=== PATIENT | female | born 1945 | race Caucasian/White ===

== ENCOUNTER → 2018-10-02 | Outpatient (CLI) | payer MEDICARE, OTHER ==
--- NOTE | 2018-10-10 11:15 | HOLTMON ---
[facility] Test Date: 2018-10-02 Pat Name: AUGUSTA BAY Department: Room: - Gender: Female [employer] Sales Rep: Halle Crespo/WENDY BUTCHER : 1945 Requested By: Francisco Anguiano Order Number: [id number] Reading MD: Merlin Duggan Interpretive Statements Patient was monitored for 24:00 hours starting on 10/02/18. 23 hours and 39 minutes were usable for analysis. Baseline mechanism was SR with normal AV conduction and narrow QRS complex. Minimum HR was 51 bpm, average HR 72 bpm and maximum HR 134 bpm. There were no pauses and no episodes of atrial fibrillation. There were rare isolated PVC's. There were frequent PAC's (total 2730) including 420 runs of atrial tachycatdia (maximum 9 beats, fastest 135 bpm). Patient reported single episode of shortness ofbreath corresponding to sinus rhythm. Electronically Signed on 10-10-2018 11:15:32 EDT by Merlin Duggan
== END ==
LOC: M EKG 10:50
DX: R00.0 Tachycardia, unspecified (principal)

== ENCOUNTER → 2021-06-26 | Outpatient (CLI) | payer MEDICARE, OTHER ==
[~2021-06-26] MED LIST: ATOR1TAB21; ECOT81TA5 PO; ELIQ5TAB; LANTINJ4; METF-838; METO1TAB87 PO; METR-265; NOVOINJ3; NOXI1TAB PO; OMEP-173
== END ==
LOC: M RAD 10:41
PROVIDERS: ATTEND Internal Medicine Medical Oncology
DX: M84.88 Other disorders of continuity of bone, other site (principal)

== ENCOUNTER 2022-10-13 16:43 | Inpatient (IN) | payer MEDICARE, BC ==
[~2022-10-13] VITALS: Ht 167.6 cm; Wt 57.0 kg
[~2022-10-13 16:43] MED LIST changes: -ATOR1TAB21; +ATOR1TAB21 PO; -ELIQ5TAB; +ELIQ5TAB PO; -METF-838; +METF-838 PO; -NOVOINJ3; +NOVOINJ3 SQ
[2022-10-13 20:27] VITALS: BP 137/63; TEMP 98.7; O2SAT 93
[2022-10-13 21:32] LABS: HEMATOCRIT 40.3 % (36.0-47.0); MEAN CORPUSCULAR HGB CONC 32.3 g/dl (32.0-36.5); MEAN CORPUSCULAR VOLUME 86.7 fl (80.0-96.0); RED BLOOD COUNT 4.65 10^6/uL (4.00-5.40); WHITE BLOOD COUNT 24.9 10^3/uL (4.0-10.0)
[2022-10-13 21:44] LABS: PLATELET COUNT, AUTOMATED 79 10^3/uL (150-450)
[2022-10-13 21:59] LABS: BLOOD UREA NITROGEN 22 MG/DL (9-23); CALCIUM LEVEL 10.8 MG/DL (8.3-10.6); CARBON DIOXIDE LEVEL 26 MMOL/L (20-31); CHLORIDE LEVEL 106 MMOL/L (98-107); CREATININE FOR GFR 0.49 MG/DL (0.55-1.30); GLOMERULAR FILTRATION RATE > 60.0 (>39); GLUCOSE, FASTING 241 MG/DL (74-106); POTASSIUM SERUM 3.7 MMOL/L (3.5-5.1); SODIUM LEVEL 138 MMOL/L (136-145)
[2022-10-13] MEDS: ACETAMINOPHEN TAB 650MG DOSE (2X325MG) PO PRN (23:27)
[2022-10-13 23:45] LABS: APPEARANCE, URINE CLOUDY (CLEAR); BACTERIA, URINE AUTO 3+ (NEGATIVE); BILIRUBIN, URINE AUTO NEGATIVE (NEGATIVE); BLOOD, URINE BLOOD 3+ (NEGATIVE); COLOR, URINE AMBER (YELLOW); GLUCOSE, URINE (UA) AUTO 3+ mg/dL (NEGATIVE); KETONE, URINE AUTO 1+ mg/dL (NEGATIVE); LEUKOCYTE ESTERASE, URINE AUTO 3+ (NEGATIVE); NITRITE, URINE AUTO POSITIVE (NEGATIVE); PROTEIN, URINE AUTO 2+ mg/dL (NEGATIVE); RBC, URINE AUTO TNTC /HPF (0-3); SPECIFIC GRAVITY URINE AUTO 1.027 (1.002-1.035); SQUAMOUS EPITHELIAL CELL UR AU 1 /HPF (0-6); UROBILINOGEN, URINE AUTO 0.2 mg/dL (0.0-2.0); WBC, URINE AUTO TNTC /HPF (0-3)
[2022-10-13] MEDS ORDERED: NS 1,000 ML IV SCH (23:55)
[2022-10-14] VITALS (8 sets, daily range): BP systolic 125–144; BP diastolic 56–66; TEMP 97.3–98.1; O2SAT 94–100
[2022-10-14] MEDS: cefTRIAXone SOD 1 GM in D5W MINI-BAG PLUS 50 ML IV SCH ×2 (00:03→23:28)
[2022-10-14 06:53] LABS: HEMATOCRIT 40.3 % (36.0-47.0); MEAN CORPUSCULAR HEMOGLOBIN 28.1 pg (27.0-33.0); MEAN CORPUSCULAR HGB CONC 32.3 g/dl (32.0-36.5); RED BLOOD COUNT 4.63 10^6/uL (4.00-5.40); WHITE BLOOD COUNT 21.3 10^3/uL (4.0-10.0)
[2022-10-14 07:03] LABS: PLATELET COUNT, AUTOMATED 80 10^3/uL (150-450)
[2022-10-14 07:22] LABS: BLOOD UREA NITROGEN 22 MG/DL (9-23); CALCIUM LEVEL 9.8 MG/DL (8.3-10.6); CARBON DIOXIDE LEVEL 24 MMOL/L (20-31); CHLORIDE LEVEL 106 MMOL/L (98-107); CREATININE FOR GFR 0.48 MG/DL (0.55-1.30); GLOMERULAR FILTRATION RATE > 60.0 (>39); GLUCOSE, FASTING 259 MG/DL (74-106); POTASSIUM SERUM 3.8 MMOL/L (3.5-5.1); SODIUM LEVEL 138 MMOL/L (136-145)
[2022-10-14] MEDS: HEPARIN SOD (PORCINE) 5000UNITS/ML 1ML VIAL/SYRINGE SC SCH ×5 (07:43→21:13)
[2022-10-14] MEDS ORDERED: DEXTROSE 50% 50ML SYRINGE IV PRN (07:50)
[2022-10-14] MEDS ORDERED: GLUCOSE 4GM CHEW TABLET PO PRN (07:50)
[2022-10-14] MEDS ORDERED: GLUCAGON INJ 1MG VIAL SC PRN (07:50)
[2022-10-14] MEDS ORDERED: MORPHINE 2 MG/ML 1ML VIAL IV PRN (07:50)
[2022-10-14] MEDS ORDERED: METO1TAB32 PO (10:32)
[2022-10-14] MEDS ORDERED: VITA100093 PO (10:32)
[2022-10-14] MEDS ORDERED: ATOR80TA59 PO (10:34)
[2022-10-14] MEDS ORDERED: LISI10TA22 PO (10:41)
[2022-10-14] MEDS ORDERED: AMLO1TAB25 PO (10:41)
[2022-10-14] MEDS ORDERED: ESCI5SOL3 PO (10:41)
[2022-10-14] MEDS ORDERED: METR0.7534 TOP (10:44)
[2022-10-14] MEDS ORDERED: TRAM50TA2 PO (10:44)
[2022-10-14] MEDS ORDERED: ATOR40TA75 PO (10:47)
[2022-10-14] MEDS ORDERED: HOME MED LIST COMPLETE! XX SCH (11:05)
[2022-10-14] MEDS ORDERED: SUGAMMADEX SODIUM 500 MG/5 ML VIAL (BRIDION) As Ordered ONE (13:08)
[2022-10-14] MEDS ORDERED: propofoL 200 MG/20 ML VIAL As Ordered ONE (13:08)
[2022-10-14] MEDS ORDERED: fentaNYL 100 MCG/2 ML INJECTION As Ordered ONE ×2 (13:08→14:26)
[2022-10-14] MEDS ORDERED: ONDANSETRON 4MG 2ML VIAL As Ordered ONE (13:08)
[2022-10-14] MEDS ORDERED: LIDOCAINE 2% 100MG/5ML SDV (FOR ANES.) As Ordered ONE (13:08)
[2022-10-14] MEDS ORDERED: ACETAMINOPHEN 1000MG 100ML IV BAG As Ordered ONE (13:08)
[2022-10-14] MEDS ORDERED: ROCURONIUM BROMIDE 50MG/5ML VIAL As Ordered ONE (13:08)
[2022-10-14] MEDS ORDERED: ceFAZolin 2 GM/D5W 50 ML IV BAG As Ordered ONE (13:10)
[2022-10-14] MEDS ORDERED: ceFAZolin 1GM VIAL As Ordered ONE (13:12)
[2022-10-14] MEDS ORDERED: ESMOLOL INJ 100MG/10ML VIAL As Ordered ONE (13:56)
[2022-10-14] MEDS ORDERED: LABETALOL 100MG/20ML VIAL As Ordered ONE (14:14)
[2022-10-14] MEDS ORDERED: INSULIN LISPRO (NovoLOG) PER UNIT As Ordered ONE ×3 (14:31→14:46)
[2022-10-14] MEDS ORDERED: PHENYLephrine 500MCG 5ML (100MCG/ML) SYRINGE As Ordered ONE (14:59)
[2022-10-14] MEDS ORDERED: KETOROLAC 60MG 2ML VIAL As Ordered ONE (16:14)
[2022-10-14] MEDS ORDERED: METOCLOPRAMIDE INJ 10MG/2ML VIAL IV PRN (16:15)
[2022-10-14] MEDS: METOPROLOL SUCC *XL* 25MG TAB (TopROL *XL*) PO SCH (16:15)
[2022-10-14] MEDS: OMEPRAZOLE 20MG CAP PO SCH (16:15)
[2022-10-14] MEDS: ATORVASTATIN 20 MG TAB PO SCH (16:15)
[2022-10-14] MEDS ORDERED: MEPERIDINE 25 MG/ML 1ML VIAL IV PRN (16:15)
[2022-10-14] MEDS: VITAMIN D 1,000 INTERNATIONAL UNITS TABLET PO SCH (16:15)
[2022-10-14] MEDS ORDERED: ONDANSETRON 4MG 2ML VIAL IV PRN (16:15)
[2022-10-14] MEDS ORDERED: NALBUPHINE HCL 10 MG/ML 1ML AMP IV PRN (16:15)
[2022-10-14] MEDS: ESCITALOPRAM OXALATE 5MG TABLET (LEXAPRO) PO SCH (16:15)
[2022-10-14] MEDS ORDERED: fentaNYL 100 MCG/2 ML INJECTION IV PRN (16:15)
[2022-10-14] MEDS ORDERED: LR 1,000 ML IV SCH (16:15)
[2022-10-14] MEDS ORDERED: INSULIN LISPRO (NovoLOG) PER UNIT SC PRN (16:15)
[2022-10-14] MEDS: ASPIRIN 81MG ENTERIC TABLET PO SCH (16:15)
[2022-10-14] MEDS ORDERED: oxyCODONE 5MG TAB PO PRN (16:15)
[2022-10-14] MEDS ORDERED: diphenhydrAMINE 50MG/ML VIAL IV PRN (16:15)
[2022-10-14] MEDS: INSULIN LISPRO (NovoLOG) PER UNIT SC SCH (21:00)
[2022-10-14] MEDS: ceFAZolin SOD 2 GM in IV 1 EA IV SCH (21:12)
[2022-10-14] MEDS ORDERED: VANCOMYCIN HCL 1,000 MG, VIAL MATE ADAPTER 1 EACH in D5W 250 ML IV SCH (21:25)
[2022-10-14] MEDS: KETOROLAC 30 MG/ML 1ML VIAL IV PRN (21:31)
[2022-10-14] MEDS ORDERED: VANCOMYCIN HCL 1,000 MG, VIAL MATE ADAPTER 1 EACH in D5W 250 ML IV ONE (21:35)
[2022-10-15 02:00] VITALS: BP 122/57; TEMP 97.5; O2SAT 98
[2022-10-15] MEDS: VANCOMYCIN HCL 750 MG, VIAL MATE ADAPTER 1 EACH in D5W 250 ML IV SCH ×2 (05:02→17:45)
[2022-10-15] MEDS: HEPARIN SOD (PORCINE) 5000UNITS/ML 1ML VIAL/SYRINGE SC SCH (05:02)
[2022-10-15] MEDS: ACETAMINOPHEN TAB 650MG DOSE (2X325MG) PO PRN (05:33)
[2022-10-15 05:54] LABS: BLOOD UREA NITROGEN 32 MG/DL (9-23); CALCIUM LEVEL 9.2 MG/DL (8.3-10.6); CARBON DIOXIDE LEVEL 26 MMOL/L (20-31); CHLORIDE LEVEL 107 MMOL/L (98-107); CREATININE FOR GFR 0.53 MG/DL (0.55-1.30); GLOMERULAR FILTRATION RATE > 60.0 (>39); GLUCOSE, FASTING 299 MG/DL (74-106); MAGNESIUM LEVEL 1.9 MG/DL (1.8-2.4); PHOSPHORUS LEVEL 2.7 MG/DL (2.4-5.1); POTASSIUM SERUM 4.1 MMOL/L (3.5-5.1); SODIUM LEVEL 139 MMOL/L (136-145)
[2022-10-15 06:00] VITALS: BP 97/53; TEMP 98.2; O2SAT 95
[2022-10-15 06:15] LABS: BASO # 0.1 10^3/uL (0.0-0.2); BASO % 0.3 % (0.0-1.0); HEMATOCRIT 33.2 % (36.0-47.0); LYMPH # 1.1 10^3/uL (1.5-5.0); LYMPH % 5.3 % (24.0-44.0); MEAN CORPUSCULAR HEMOGLOBIN 27.6 pg (27.0-33.0); MEAN CORPUSCULAR HGB CONC 31.3 g/dl (32.0-36.5); MEAN CORPUSCULAR VOLUME 88.1 fl (80.0-96.0); MONO % 17.1 % (2.0-8.0); NEUTROPHILS # 14.8 10^3/uL (1.5-8.5); NEUTROPHILS % 73.1 % (36.0-66.0); RED BLOOD COUNT 3.77 10^6/uL (4.00-5.40); WHITE BLOOD COUNT 20.3 10^3/uL (4.0-10.0)
[2022-10-15] MEDS: ceFAZolin SOD 2 GM in IV 1 EA IV SCH (06:19)
[2022-10-15 06:53] LABS: HEMOGLOBIN 10.4 g/dl (12.0-15.5); MONO # 3.5 10^3/uL (0.0-0.8); PLATELET COUNT, AUTOMATED 88 10^3/uL (150-450)
[2022-10-15] MEDS: ESCITALOPRAM OXALATE 5MG TABLET (LEXAPRO) PO SCH (08:09)
[2022-10-15] MEDS: INSULIN LISPRO (NovoLOG) PER UNIT SC SCH ×4 (08:09→20:18)
[2022-10-15] MEDS: ASPIRIN 81MG ENTERIC TABLET PO SCH (08:10)
[2022-10-15] MEDS: VITAMIN D 1,000 INTERNATIONAL UNITS TABLET PO SCH (08:10)
[2022-10-15] MEDS: OMEPRAZOLE 20MG CAP PO SCH (08:10)
[2022-10-15] MEDS: ATORVASTATIN 20 MG TAB PO SCH (08:10)
[2022-10-15] MEDS: METOPROLOL SUCC *XL* 25MG TAB (TopROL *XL*) PO SCH (08:10)
[2022-10-15] MEDS: KETOROLAC 30 MG/ML 1ML VIAL IV PRN (11:56)
[2022-10-15 14:01] VITALS: BP 121/48; TEMP 98.1; O2SAT 95
[2022-10-15 19:58] VITALS: BP 115/53; TEMP 98.2; O2SAT 97
[2022-10-15] MEDS: APIXABAN 5 MG TAB (ELIQUIS) PO SCH (20:17)
[2022-10-15] MEDS: LEVEMIR (INSULIN DETEMIR) 1 UNITS/0.01ML SC SCH (20:18)
[2022-10-15] MEDS: cefTRIAXone SOD 1 GM in D5W MINI-BAG PLUS 50 ML IV SCH (22:45)
[2022-10-16] MEDS: VANCOMYCIN HCL 750 MG, VIAL MATE ADAPTER 1 EACH in D5W 250 ML IV SCH (04:56)
[2022-10-16 06:10] VITALS: BP 155/62; TEMP 97.9; O2SAT 94
[2022-10-16 06:18] LABS: BASO # 0.1 10^3/uL (0.0-0.2); BASO % 0.4 % (0.0-1.0); EOS % 0.1 % (0.0-3.0); HEMOGLOBIN 9.6 g/dl (12.0-15.5); LYMPH # 1.6 10^3/uL (1.5-5.0); LYMPH % 8.9 % (24.0-44.0); MEAN CORPUSCULAR HEMOGLOBIN 28.2 pg (27.0-33.0); MEAN CORPUSCULAR HGB CONC 33.1 g/dl (32.0-36.5); MEAN CORPUSCULAR VOLUME 85.3 fl (80.0-96.0); MONO % 16.8 % (2.0-8.0); NEUTROPHILS # 12.6 10^3/uL (1.5-8.5); NEUTROPHILS % 69.8 % (36.0-66.0); WHITE BLOOD COUNT 18.1 10^3/uL (4.0-10.0)
[2022-10-16] MEDS: KETOROLAC 30 MG/ML 1ML VIAL IV PRN (06:22)
[2022-10-16 06:48] LABS: BLOOD UREA NITROGEN 28 MG/DL (9-23); CALCIUM LEVEL 10.3 MG/DL (8.3-10.6); CARBON DIOXIDE LEVEL 28 MMOL/L (20-31); CHLORIDE LEVEL 103 MMOL/L (98-107); CREATININE FOR GFR 0.45 MG/DL (0.55-1.30); GLOMERULAR FILTRATION RATE > 60.0 (>39); GLUCOSE, FASTING 270 MG/DL (74-106); MAGNESIUM LEVEL 1.7 MG/DL (1.8-2.4); POTASSIUM SERUM 3.8 MMOL/L (3.5-5.1); SODIUM LEVEL 135 MMOL/L (136-145)
[2022-10-16 07:18] LABS: PLATELET COUNT, AUTOMATED 94 10^3/uL (150-450)
[2022-10-16] MEDS: ACETAMINOPHEN TAB 650MG DOSE (2X325MG) PO PRN (08:25)
[2022-10-16] MEDS: INSULIN LISPRO (NovoLOG) PER UNIT SC SCH ×2 (08:26→12:07)
[2022-10-16] MEDS: LEVEMIR (INSULIN DETEMIR) 1 UNITS/0.01ML SC SCH (08:26)
[2022-10-16] MEDS: APIXABAN 5 MG TAB (ELIQUIS) PO SCH (08:27)
[2022-10-16] MEDS: ESCITALOPRAM OXALATE 5MG TABLET (LEXAPRO) PO SCH (08:27)
[2022-10-16] MEDS: OMEPRAZOLE 20MG CAP PO SCH (08:27)
[2022-10-16] MEDS: ATORVASTATIN 20 MG TAB PO SCH (08:27)
[2022-10-16] MEDS: VITAMIN D 1,000 INTERNATIONAL UNITS TABLET PO SCH (08:27)
[2022-10-16] MEDS: ASPIRIN 81MG ENTERIC TABLET PO SCH (08:27)
[2022-10-16] MEDS: MAG SULF 1GM/100ML (MAG RUN) 1 GM in IV 1 EA IV SCH ×2 (08:28→09:38)
[2022-10-16 08:29] VITALS: BP 130/58
[2022-10-16] MEDS: METOPROLOL SUCC *XL* 25MG TAB (TopROL *XL*) PO SCH (08:29)
[2022-10-16] MEDS ORDERED: BACTRIM 160MG/800MG DS TAB PO SCH (09:00)
[2022-10-16] MEDS ORDERED: traMADol 50 MG TAB PO PRN (11:20)
[2022-10-16] MEDS ORDERED: PERCOCET 5MG/325MG TAB PO PRN (11:20)
[2022-10-16] MEDS ORDERED: TRAM50TA2 PO (13:30)
[2022-10-16] MEDS ORDERED: INSUDET SC (13:30)
[2022-10-16] MEDS ORDERED: BACTDSTA PO (13:30)
[2022-10-16] MEDS ORDERED: INSUHUMDS SC (13:30)
[2022-10-16] MEDS ORDERED: LEVEMIR (INSULIN DETEMIR) 1 UNITS/0.01ML SC SCH (21:00)
== END 2022-10-16 14:25 | DRG 481 ==
LOC: M MS5PR 20:13
PROVIDERS: ADMIT Internal Medicine; ATTEND Internal Medicine
PROC: 0QH634Z Insertion of Internal Fixation Device into Right Upper Femur, Percutaneous Approach (ICD-10-PCS; principal; 2022-10-14 12:00)
PROC: 0PSF04Z Reposition Right Humeral Shaft with Internal Fixation Device, Open Approach (ICD-10-PCS; 2022-10-14 12:00)
DX: S72.001A Fracture of unspecified part of neck of right femur, initial encounter for closed fracture (principal); N39.0 Urinary tract infection, site not specified; S42.201A Unspecified fracture of upper end of right humerus, initial encounter for closed fracture; D69.6 Thrombocytopenia, unspecified; I10 Essential (primary) hypertension; E78.5 Hyperlipidemia, unspecified; K21.9 Gastro-esophageal reflux disease without esophagitis; I48.0 Paroxysmal atrial fibrillation; E11.65 Type 2 diabetes mellitus with hyperglycemia; E83.42 Hypomagnesemia; F41.9 Anxiety disorder, unspecified; F32.A Depression, unspecified; Z86.73 Personal history of transient ischemic attack (TIA), and cerebral infarction without residual deficits; F03.90 Unspecified dementia, unspecified severity, without behavioral disturbance, psychotic disturbance, mood disturbance, and anxiety; E83.52 Hypercalcemia; B95.61 Methicillin susceptible Staphylococcus aureus infection as the cause of diseases classified elsewhere; W18.30XA Fall on same level, unspecified, initial encounter; Y92.009 Unspecified place in unspecified non-institutional (private) residence as the place of occurrence of the external cause; Z79.01 Long term (current) use of anticoagulants; Z79.82 Long term (current) use of aspirin; Z79.899 Other long term (current) drug therapy; Z79.4 Long term (current) use of insulin; Z88.7 Allergy status to serum and vaccine

== ENCOUNTER 2022-10-16 14:11 | Inpatient (IN) | payer MEDICARE, BC ==
[~2022-10-16] VITALS: Ht 167.6 cm; Wt 55.5 kg
[~2022-10-16 14:11] MED LIST changes: +AMLO1TAB25 PO; +ATOR40TA75 PO; +ATOR80TA59 PO; +BACTDSTA PO; +ESCI5SOL3 PO; +INSUDET SC; +INSUHUMDS SC; +LISI10TA22 PO; +METO1TAB32 PO; +METR0.7534 TOP; +TRAM50TA2 PO; +VITA100093 PO
[2022-10-16 14:30] VITALS: BP 126/58; TEMP 97.1; O2SAT 97
[2022-10-16] MEDS ORDERED: GLUCOSE 4GM CHEW TABLET PO PRN (16:20)
[2022-10-16] MEDS ORDERED: GLUCAGON INJ 1MG VIAL SC PRN (16:20)
[2022-10-16] MEDS ORDERED: BISACODYL 10MG SUPP PR PRN (16:20)
[2022-10-16] MEDS ORDERED: DEXTROSE 50% 50ML SYRINGE IV PRN (16:20)
[2022-10-16] MEDS: ACETAMINOPHEN 500 MG TAB PO SCH ×2 (17:05→20:25)
[2022-10-16] MEDS: INSULIN LISPRO (NovoLOG) PER UNIT SC SCH ×2 (17:06→19:46)
[2022-10-16 20:00] VITALS: BP 126/62; TEMP 97.2; O2SAT 96
[2022-10-16] MEDS: PANTOPRAZOLE 40MG TAB (PROTONIX) PO SCH (20:25)
[2022-10-16] MEDS: SUCRALFATE 1 GM TAB PO SCH (20:25)
[2022-10-16] MEDS: BACTRIM 160MG/800MG DS TAB PO SCH (20:25)
[2022-10-16] MEDS: APIXABAN 5 MG TAB (ELIQUIS) PO SCH (20:25)
[2022-10-16] MEDS: DOCUSATE SODIUM 100MG CAPSULE PO SCH (20:25)
[2022-10-16] MEDS: SENNA 8.6 MG TAB (SENOKOT) PO SCH (20:25)
[2022-10-16] MEDS: REMEDY PHYTOPLEX Z-GUARD PASTE 113GM TUBE (FROM STOREROOM PRODUCT) TOP SCH (20:26)
[2022-10-16] MEDS: LEVEMIR (INSULIN DETEMIR) 1 UNITS/0.01ML SC SCH (20:26)
[2022-10-17 06:05] VITALS: BP 140/68; TEMP 96.7; O2SAT 95
[2022-10-17 06:42] LABS: BASO # 0.1 10^3/uL (0.0-0.2); BASO % 0.4 % (0.0-1.0); EOS % 0.2 % (0.0-3.0); HEMATOCRIT 29.3 % (36.0-47.0); HEMOGLOBIN 9.6 g/dl (12.0-15.5); LYMPH # 1.3 10^3/uL (1.5-5.0); LYMPH % 8.2 % (24.0-44.0); MEAN CORPUSCULAR HEMOGLOBIN 27.8 pg (27.0-33.0); MEAN CORPUSCULAR HGB CONC 32.8 g/dl (32.0-36.5); MEAN CORPUSCULAR VOLUME 84.9 fl (80.0-96.0); MONO % 16.1 % (2.0-8.0); NEUTROPHILS # 11.5 10^3/uL (1.5-8.5); NEUTROPHILS % 70.2 % (36.0-66.0); PLATELET COUNT, AUTOMATED 107 10^3/uL (150-450); RED BLOOD COUNT 3.45 10^6/uL (4.00-5.40); WHITE BLOOD COUNT 16.3 10^3/uL (4.0-10.0)
[2022-10-17 07:02] LABS: ALBUMIN 2.5 G/DL (3.2-5.2); ALKALINE PHOSPHATASE 350 U/L (46-116); ALT/SGPT < 9 U/L (7.0-40); AST/SGOT 18 U/L (<34); BILIRUBIN,TOTAL 0.7 MG/DL (0.3-1.2); BLOOD UREA NITROGEN 20 MG/DL (9-23); CALCIUM LEVEL 9.5 MG/DL (8.3-10.6); CARBON DIOXIDE LEVEL 28 MMOL/L (20-31); CHLORIDE LEVEL 107 MMOL/L (98-107); CREATININE FOR GFR 0.51 MG/DL (0.55-1.30); GLOMERULAR FILTRATION RATE > 60.0 (>39); GLUCOSE, FASTING 134 MG/DL (74-106); POTASSIUM SERUM 3.8 MMOL/L (3.5-5.1); SODIUM LEVEL 140 MMOL/L (136-145)
[2022-10-17 07:11] LABS: MONO # 2.6 10^3/uL (0.0-0.8)
[2022-10-17] MEDS: METOPROLOL SUCC *XL* 25MG TAB (TopROL *XL*) PO SCH (09:00)
[2022-10-17] MEDS: LEVEMIR (INSULIN DETEMIR) 1 UNITS/0.01ML SC SCH ×2 (09:01→20:45)
[2022-10-17] MEDS: INSULIN LISPRO (NovoLOG) PER UNIT SC SCH ×4 (09:02→20:44)
[2022-10-17] MEDS: ACETAMINOPHEN 500 MG TAB PO SCH ×3 (09:02→20:43)
[2022-10-17] MEDS: ASPIRIN 81MG ENTERIC TABLET PO SCH (09:03)
[2022-10-17] MEDS: ESCITALOPRAM OXALATE 5MG TABLET (LEXAPRO) PO SCH (09:03)
[2022-10-17] MEDS: VITAMIN D 1,000 INTERNATIONAL UNITS TABLET PO SCH (09:03)
[2022-10-17] MEDS: BACTRIM 160MG/800MG DS TAB PO SCH ×2 (09:03→20:43)
[2022-10-17] MEDS: SUCRALFATE 1 GM TAB PO SCH ×2 (09:04→20:43)
[2022-10-17] MEDS: MAGNESIUM OXIDE 400MG TAB (MAG-OX) PO SCH (09:04)
[2022-10-17] MEDS: APIXABAN 5 MG TAB (ELIQUIS) PO SCH ×2 (09:04→20:43)
[2022-10-17] MEDS: ATORVASTATIN 20 MG TAB PO SCH (09:04)
[2022-10-17] MEDS: PANTOPRAZOLE 40MG TAB (PROTONIX) PO SCH ×2 (09:06→20:43)
[2022-10-17] MEDS: DOCUSATE SODIUM 100MG CAPSULE PO SCH ×2 (09:07→20:44)
[2022-10-17] MEDS: REMEDY PHYTOPLEX Z-GUARD PASTE 113GM TUBE (FROM STOREROOM PRODUCT) TOP SCH ×3 (09:08→20:44)
[2022-10-17 20:00] VITALS: BP 133/61; TEMP 96; O2SAT 99
[2022-10-17] MEDS: SENNA 8.6 MG TAB (SENOKOT) PO SCH (20:43)
[2022-10-18 06:00] VITALS: BP 156/68; TEMP 96.6; O2SAT 98
[2022-10-18] MEDS: oxyCODONE 5MG TAB PO PRN ×2 (06:03→12:20)
[2022-10-18 06:19] LABS: HEMOGLOBIN 9.8 g/dl (12.0-15.5); MEAN CORPUSCULAR HEMOGLOBIN 26.8 pg (27.0-33.0); MEAN CORPUSCULAR HGB CONC 31.6 g/dl (32.0-36.5); MEAN CORPUSCULAR VOLUME 84.9 fl (80.0-96.0); PLATELET COUNT, AUTOMATED 130 10^3/uL (150-450); RED BLOOD COUNT 3.65 10^6/uL (4.00-5.40); WHITE BLOOD COUNT 17.4 10^3/uL (4.0-10.0)
[2022-10-18 06:54] LABS: EOSINOPHILS 1 % (0-3); HYPOCHROMASIA 1+; LYMPHOCYTES 6 % (16-44); MONOCYTES 8 % (0-5); MYELOCYTES 2 % (0-0); NEUTROPHILS 83 % (28-66); PLATELET ESTIMATE NORMAL (NORMAL)
[2022-10-18] MEDS: INSULIN LISPRO (NovoLOG) PER UNIT SC SCH ×4 (07:29→20:37)
[2022-10-18] MEDS: SUCRALFATE 1 GM TAB PO SCH ×2 (07:51→20:38)
[2022-10-18] MEDS: VITAMIN D 1,000 INTERNATIONAL UNITS TABLET PO SCH (07:51)
[2022-10-18] MEDS: BACTRIM 160MG/800MG DS TAB PO SCH ×2 (07:51→20:38)
[2022-10-18] MEDS: ATORVASTATIN 20 MG TAB PO SCH (07:52)
[2022-10-18] MEDS: ESCITALOPRAM OXALATE 5MG TABLET (LEXAPRO) PO SCH (07:53)
[2022-10-18] MEDS: ASPIRIN 81MG ENTERIC TABLET PO SCH (07:54)
[2022-10-18] MEDS: MAGNESIUM OXIDE 400MG TAB (MAG-OX) PO SCH (07:54)
[2022-10-18] MEDS: METOPROLOL SUCC *XL* 25MG TAB (TopROL *XL*) PO SCH (07:54)
[2022-10-18] MEDS: DOCUSATE SODIUM 100MG CAPSULE PO SCH ×2 (07:55→20:38)
[2022-10-18] MEDS: PANTOPRAZOLE 40MG TAB (PROTONIX) PO SCH ×2 (07:55→20:38)
[2022-10-18] MEDS: APIXABAN 5 MG TAB (ELIQUIS) PO SCH ×2 (07:55→20:38)
[2022-10-18] MEDS: REMEDY PHYTOPLEX Z-GUARD PASTE 113GM TUBE (FROM STOREROOM PRODUCT) TOP SCH ×3 (07:57→20:38)
[2022-10-18] MEDS: ACETAMINOPHEN 500 MG TAB PO SCH ×3 (07:57→20:37)
[2022-10-18] MEDS: LEVEMIR (INSULIN DETEMIR) 1 UNITS/0.01ML SC SCH ×2 (07:57→20:36)
[2022-10-18 14:00] VITALS: BP 127/60; TEMP 97; O2SAT 95
[2022-10-18 20:00] VITALS: BP 130/61; TEMP 96.3; O2SAT 97
[2022-10-18] MEDS: SENNA 8.6 MG TAB (SENOKOT) PO SCH (20:38)
[2022-10-19 06:00] VITALS: BP 145/64; TEMP 96.7; O2SAT 99
[2022-10-19 06:35] LABS: HEMATOCRIT 28.9 % (36.0-47.0); HEMOGLOBIN 9.4 g/dl (12.0-15.5); MEAN CORPUSCULAR HEMOGLOBIN 27.9 pg (27.0-33.0); MEAN CORPUSCULAR HGB CONC 32.5 g/dl (32.0-36.5); MEAN CORPUSCULAR VOLUME 85.8 fl (80.0-96.0); PLATELET COUNT, AUTOMATED 131 10^3/uL (150-450); RED BLOOD COUNT 3.37 10^6/uL (4.00-5.40); WHITE BLOOD COUNT 12.9 10^3/uL (4.0-10.0)
[2022-10-19 06:47] LABS: BLOOD UREA NITROGEN 15 MG/DL (9-23); CALCIUM LEVEL 10.1 MG/DL (8.3-10.6); CARBON DIOXIDE LEVEL 29 MMOL/L (20-31); CHLORIDE LEVEL 105 MMOL/L (98-107); CREATININE FOR GFR 0.56 MG/DL (0.55-1.30); GLOMERULAR FILTRATION RATE > 60.0 (>39); GLUCOSE, FASTING 87 MG/DL (74-106); POTASSIUM SERUM 4.2 MMOL/L (3.5-5.1); SODIUM LEVEL 139 MMOL/L (136-145)
[2022-10-19] MEDS: INSULIN LISPRO (NovoLOG) PER UNIT SC SCH ×4 (07:30→20:34)
[2022-10-19 08:02] LABS: ATYPICAL LYMPH 5 % (0-5); HYPOCHROMASIA 1+; LYMPHOCYTES 6 % (16-44); METAMYELOCYTES 1 % (0-0); MONOCYTES 17 % (0-5); NEUTROPHILS 69 % (28-66)
[2022-10-19 08:05] LABS: PLATELET ESTIMATE NORMAL (NORMAL)
[2022-10-19] MEDS: SUCRALFATE 1 GM TAB PO SCH ×2 (08:51→20:34)
[2022-10-19] MEDS: BACTRIM 160MG/800MG DS TAB PO SCH ×2 (08:51→20:34)
[2022-10-19] MEDS: APIXABAN 5 MG TAB (ELIQUIS) PO SCH ×2 (08:52→20:34)
[2022-10-19] MEDS: ASPIRIN 81MG ENTERIC TABLET PO SCH (08:52)
[2022-10-19] MEDS: MAGNESIUM OXIDE 400MG TAB (MAG-OX) PO SCH (08:53)
[2022-10-19] MEDS: VITAMIN D 1,000 INTERNATIONAL UNITS TABLET PO SCH (08:53)
[2022-10-19] MEDS: ATORVASTATIN 20 MG TAB PO SCH (08:53)
[2022-10-19] MEDS: PANTOPRAZOLE 40MG TAB (PROTONIX) PO SCH ×2 (08:53→20:34)
[2022-10-19] MEDS: ACETAMINOPHEN 500 MG TAB PO SCH ×3 (08:53→20:34)
[2022-10-19] MEDS: ESCITALOPRAM OXALATE 5MG TABLET (LEXAPRO) PO SCH (08:53)
[2022-10-19] MEDS: METOPROLOL SUCC *XL* 25MG TAB (TopROL *XL*) PO SCH (08:54)
[2022-10-19] MEDS: DOCUSATE SODIUM 100MG CAPSULE PO SCH ×2 (08:55→20:35)
[2022-10-19] MEDS: LEVEMIR (INSULIN DETEMIR) 1 UNITS/0.01ML SC SCH ×2 (09:00→20:35)
[2022-10-19] MEDS: REMEDY PHYTOPLEX Z-GUARD PASTE 113GM TUBE (FROM STOREROOM PRODUCT) TOP SCH ×3 (09:06→20:35)
[2022-10-19 14:00] VITALS: BP 131/61; TEMP 97.4; O2SAT 98
[2022-10-19 20:18] VITALS: BP 120/59; TEMP 97.2; O2SAT 96
[2022-10-19] MEDS: SENNA 8.6 MG TAB (SENOKOT) PO SCH (20:34)
[2022-10-20 05:55] VITALS: BP 160/68; TEMP 98.1; O2SAT 96
[2022-10-20 06:00] VITALS: BP 156/64
[2022-10-20] MEDS: INSULIN LISPRO (NovoLOG) PER UNIT SC SCH ×4 (07:41→20:50)
[2022-10-20] MEDS: DOCUSATE SODIUM 100MG CAPSULE PO SCH ×2 (07:42→20:43)
[2022-10-20] MEDS: APIXABAN 5 MG TAB (ELIQUIS) PO SCH ×2 (07:42→20:49)
[2022-10-20] MEDS: BACTRIM 160MG/800MG DS TAB PO SCH ×2 (07:42→20:49)
[2022-10-20] MEDS: ESCITALOPRAM OXALATE 5MG TABLET (LEXAPRO) PO SCH (07:42)
[2022-10-20] MEDS: SUCRALFATE 1 GM TAB PO SCH ×2 (07:42→20:49)
[2022-10-20] MEDS: ASPIRIN 81MG ENTERIC TABLET PO SCH (07:42)
[2022-10-20] MEDS: ATORVASTATIN 20 MG TAB PO SCH (07:43)
[2022-10-20] MEDS: MAGNESIUM OXIDE 400MG TAB (MAG-OX) PO SCH (07:43)
[2022-10-20] MEDS: ACETAMINOPHEN 500 MG TAB PO SCH ×3 (07:44→20:49)
[2022-10-20] MEDS: METOPROLOL SUCC *XL* 25MG TAB (TopROL *XL*) PO SCH (07:44)
[2022-10-20] MEDS: PANTOPRAZOLE 40MG TAB (PROTONIX) PO SCH ×2 (07:44→20:49)
[2022-10-20] MEDS: VITAMIN D 1,000 INTERNATIONAL UNITS TABLET PO SCH (07:44)
[2022-10-20] MEDS: REMEDY PHYTOPLEX Z-GUARD PASTE 113GM TUBE (FROM STOREROOM PRODUCT) TOP SCH ×3 (07:45→20:50)
[2022-10-20] MEDS: LEVEMIR (INSULIN DETEMIR) 1 UNITS/0.01ML SC SCH ×2 (07:45→20:50)
[2022-10-20 14:00] VITALS: BP 127/60; TEMP 97; O2SAT 100
[2022-10-20 20:00] VITALS: BP 118/58; TEMP 96.8; O2SAT 98
[2022-10-20] MEDS: SENNA 8.6 MG TAB (SENOKOT) PO SCH (20:49)
[2022-10-21 06:00] VITALS: BP 150/60; TEMP 96.5; O2SAT 96
[2022-10-21] MEDS: INSULIN LISPRO (NovoLOG) PER UNIT SC SCH ×4 (07:30→21:41)
[2022-10-21] MEDS: BACTRIM 160MG/800MG DS TAB PO SCH ×2 (08:31→21:42)
[2022-10-21] MEDS: ESCITALOPRAM OXALATE 5MG TABLET (LEXAPRO) PO SCH (08:32)
[2022-10-21] MEDS: ASPIRIN 81MG ENTERIC TABLET PO SCH (08:32)
[2022-10-21] MEDS: APIXABAN 5 MG TAB (ELIQUIS) PO SCH ×2 (08:32→21:42)
[2022-10-21] MEDS: ATORVASTATIN 20 MG TAB PO SCH (08:32)
[2022-10-21] MEDS: MAGNESIUM OXIDE 400MG TAB (MAG-OX) PO SCH (08:32)
[2022-10-21] MEDS: SUCRALFATE 1 GM TAB PO SCH ×2 (08:32→21:42)
[2022-10-21] MEDS: DOCUSATE SODIUM 100MG CAPSULE PO SCH ×2 (08:32→21:00)
[2022-10-21] MEDS: VITAMIN D 1,000 INTERNATIONAL UNITS TABLET PO SCH (08:33)
[2022-10-21] MEDS: PANTOPRAZOLE 40MG TAB (PROTONIX) PO SCH ×2 (08:33→21:42)
[2022-10-21] MEDS: ACETAMINOPHEN 500 MG TAB PO SCH ×3 (08:33→21:41)
[2022-10-21] MEDS: METOPROLOL SUCC *XL* 25MG TAB (TopROL *XL*) PO SCH (08:33)
[2022-10-21] MEDS: LEVEMIR (INSULIN DETEMIR) 1 UNITS/0.01ML SC SCH ×2 (08:34→21:41)
[2022-10-21] MEDS: REMEDY PHYTOPLEX Z-GUARD PASTE 113GM TUBE (FROM STOREROOM PRODUCT) TOP SCH ×3 (08:34→21:00)
[2022-10-21 14:00] VITALS: BP 134/61; TEMP 96.9; O2SAT 97
[2022-10-21 20:00] VITALS: BP 136/63; TEMP 96.5; O2SAT 96
[2022-10-21] MEDS: SENNA 8.6 MG TAB (SENOKOT) PO SCH (21:41)
[2022-10-22 05:29] LABS: HEMATOCRIT 30.7 % (36.0-47.0); HEMOGLOBIN 9.5 g/dl (12.0-15.5); MEAN CORPUSCULAR HEMOGLOBIN 27.2 pg (27.0-33.0); MEAN CORPUSCULAR HGB CONC 30.9 g/dl (32.0-36.5); PLATELET COUNT, AUTOMATED 156 10^3/uL (150-450); RED BLOOD COUNT 3.49 10^6/uL (4.00-5.40); WHITE BLOOD COUNT 14.8 10^3/uL (4.0-10.0)
[2022-10-22 06:00] VITALS: BP 135/65; TEMP 96.2; O2SAT 96
[2022-10-22 06:08] LABS: BLOOD UREA NITROGEN 13 MG/DL (9-23); CALCIUM LEVEL 10.1 MG/DL (8.3-10.6); CARBON DIOXIDE LEVEL 29 MMOL/L (20-31); CHLORIDE LEVEL 108 MMOL/L (98-107); CREATININE FOR GFR 0.59 MG/DL (0.55-1.30); GLOMERULAR FILTRATION RATE > 60.0 (>39); GLUCOSE, FASTING 66 MG/DL (74-106); MAGNESIUM LEVEL 1.8 MG/DL (1.8-2.4); POTASSIUM SERUM 4.1 MMOL/L (3.5-5.1); SODIUM LEVEL 140 MMOL/L (136-145)
[2022-10-22 06:38] LABS: LYMPHOCYTES 21 % (16-44); METAMYELOCYTES 1 % (0-0); MONOCYTES 17 % (0-5); MYELOCYTES 9 % (0-0); NEUTROPHILS 51 % (28-66)
[2022-10-22 06:41] LABS: HYPOCHROMASIA 1+; PLATELET ESTIMATE NORMAL (NORMAL)
[2022-10-22] MEDS: INSULIN LISPRO (NovoLOG) PER UNIT SC SCH ×4 (07:30→20:57)
[2022-10-22] MEDS: LEVEMIR (INSULIN DETEMIR) 1 UNITS/0.01ML SC SCH ×2 (07:42→20:57)
[2022-10-22] MEDS: DOCUSATE SODIUM 100MG CAPSULE PO SCH ×2 (07:49→20:56)
[2022-10-22] MEDS: APIXABAN 5 MG TAB (ELIQUIS) PO SCH ×2 (08:47→20:56)
[2022-10-22] MEDS: ATORVASTATIN 20 MG TAB PO SCH (08:47)
[2022-10-22] MEDS: SUCRALFATE 1 GM TAB PO SCH ×2 (08:47→20:56)
[2022-10-22] MEDS: BACTRIM 160MG/800MG DS TAB PO SCH ×2 (08:48→20:55)
[2022-10-22] MEDS: ASPIRIN 81MG ENTERIC TABLET PO SCH (08:48)
[2022-10-22] MEDS: MAGNESIUM OXIDE 400MG TAB (MAG-OX) PO SCH (08:48)
[2022-10-22] MEDS: ESCITALOPRAM OXALATE 5MG TABLET (LEXAPRO) PO SCH (08:48)
[2022-10-22] MEDS: PANTOPRAZOLE 40MG TAB (PROTONIX) PO SCH ×2 (08:48→20:56)
[2022-10-22] MEDS: VITAMIN D 1,000 INTERNATIONAL UNITS TABLET PO SCH (08:48)
[2022-10-22] MEDS: REMEDY PHYTOPLEX Z-GUARD PASTE 113GM TUBE (FROM STOREROOM PRODUCT) TOP SCH ×3 (08:49→20:57)
[2022-10-22] MEDS: ACETAMINOPHEN 500 MG TAB PO SCH ×3 (08:49→20:56)
[2022-10-22] MEDS: METOPROLOL SUCC *XL* 25MG TAB (TopROL *XL*) PO SCH (09:10)
[2022-10-22] MEDS: oxyCODONE 5MG TAB PO PRN ×2 (11:15→20:55)
[2022-10-22] MEDS: **hydrALAZINE HCL** 25 MG TAB PO SCH ×2 (11:42→18:00)
[2022-10-22 14:00] VITALS: BP 104/51; TEMP 97.1; O2SAT 95
[2022-10-22 20:00] VITALS: BP 130/62; TEMP 96.2; O2SAT 98
[2022-10-22] MEDS: SENNA 8.6 MG TAB (SENOKOT) PO SCH (20:56)
[2022-10-23] MEDS: **hydrALAZINE HCL** 25 MG TAB PO SCH ×4 (05:31→17:10)
[2022-10-23 06:00] VITALS: BP 148/67; TEMP 96.7; O2SAT 99
[2022-10-23] MEDS: INSULIN LISPRO (NovoLOG) PER UNIT SC SCH ×4 (07:18→20:42)
[2022-10-23] MEDS: LEVEMIR (INSULIN DETEMIR) 1 UNITS/0.01ML SC SCH ×2 (07:18→21:17)
[2022-10-23] MEDS: DOCUSATE SODIUM 100MG CAPSULE PO SCH ×3 (09:00→21:00)
[2022-10-23] MEDS: VITAMIN D 1,000 INTERNATIONAL UNITS TABLET PO SCH (09:03)
[2022-10-23] MEDS: BACTRIM 160MG/800MG DS TAB PO SCH ×2 (09:04→21:18)
[2022-10-23] MEDS: MAGNESIUM OXIDE 400MG TAB (MAG-OX) PO SCH (09:04)
[2022-10-23] MEDS: ASPIRIN 81MG ENTERIC TABLET PO SCH (09:04)
[2022-10-23] MEDS: SUCRALFATE 1 GM TAB PO SCH ×2 (09:04→21:18)
[2022-10-23] MEDS: APIXABAN 5 MG TAB (ELIQUIS) PO SCH ×2 (09:04→21:18)
[2022-10-23] MEDS: ATORVASTATIN 20 MG TAB PO SCH (09:04)
[2022-10-23] MEDS: PANTOPRAZOLE 40MG TAB (PROTONIX) PO SCH ×2 (09:05→21:18)
[2022-10-23] MEDS: METOPROLOL SUCC *XL* 25MG TAB (TopROL *XL*) PO SCH (09:05)
[2022-10-23] MEDS: ESCITALOPRAM OXALATE 5MG TABLET (LEXAPRO) PO SCH (09:05)
[2022-10-23] MEDS: ACETAMINOPHEN 500 MG TAB PO SCH ×3 (09:06→21:18)
[2022-10-23] MEDS: REMEDY PHYTOPLEX Z-GUARD PASTE 113GM TUBE (FROM STOREROOM PRODUCT) TOP SCH ×3 (09:20→21:19)
[2022-10-23 14:00] VITALS: BP 113/57; TEMP 97.5; O2SAT 99
[2022-10-23 19:30] VITALS: BP 143/65; TEMP 96.8; O2SAT 98
[2022-10-23] MEDS: SENNA 8.6 MG TAB (SENOKOT) PO SCH (21:18)
[2022-10-24 05:41] VITALS: BP 147/66; TEMP 97.4; O2SAT 98
[2022-10-24] MEDS: **hydrALAZINE HCL** 25 MG TAB PO SCH ×5 (05:46→23:51)
[2022-10-24] MEDS: ASPIRIN 81MG ENTERIC TABLET PO SCH (08:52)
[2022-10-24] MEDS: INSULIN LISPRO (NovoLOG) PER UNIT SC SCH ×4 (08:52→19:58)
[2022-10-24] MEDS: LEVEMIR (INSULIN DETEMIR) 1 UNITS/0.01ML SC SCH ×2 (08:52→19:58)
[2022-10-24] MEDS: VITAMIN D 1,000 INTERNATIONAL UNITS TABLET PO SCH (08:52)
[2022-10-24] MEDS: ESCITALOPRAM OXALATE 5MG TABLET (LEXAPRO) PO SCH (08:52)
[2022-10-24] MEDS: APIXABAN 5 MG TAB (ELIQUIS) PO SCH ×2 (08:53→19:57)
[2022-10-24] MEDS: MAGNESIUM OXIDE 400MG TAB (MAG-OX) PO SCH (08:53)
[2022-10-24] MEDS: METOPROLOL SUCC *XL* 25MG TAB (TopROL *XL*) PO SCH (08:53)
[2022-10-24] MEDS: SUCRALFATE 1 GM TAB PO SCH ×2 (08:53→19:57)
[2022-10-24] MEDS: ACETAMINOPHEN 500 MG TAB PO SCH ×3 (08:54→19:57)
[2022-10-24] MEDS: DOCUSATE SODIUM 100MG CAPSULE PO SCH ×2 (08:54→19:50)
[2022-10-24] MEDS: ATORVASTATIN 20 MG TAB PO SCH (08:54)
[2022-10-24] MEDS: BACTRIM 160MG/800MG DS TAB PO SCH ×2 (08:54→19:57)
[2022-10-24] MEDS: PANTOPRAZOLE 40MG TAB (PROTONIX) PO SCH ×2 (08:54→19:57)
[2022-10-24] MEDS: REMEDY PHYTOPLEX Z-GUARD PASTE 113GM TUBE (FROM STOREROOM PRODUCT) TOP SCH ×3 (08:55→19:58)
[2022-10-24 10:45] LABS: HEMATOCRIT 31.2 % (36.0-47.0); HEMOGLOBIN 9.7 g/dl (12.0-15.5); MEAN CORPUSCULAR HEMOGLOBIN 27.8 pg (27.0-33.0); MEAN CORPUSCULAR HGB CONC 31.1 g/dl (32.0-36.5); MEAN CORPUSCULAR VOLUME 89.4 fl (80.0-96.0); PLATELET COUNT, AUTOMATED 154 10^3/uL (150-450); RED BLOOD COUNT 3.49 10^6/uL (4.00-5.40); WHITE BLOOD COUNT 16.9 10^3/uL (4.0-10.0)
[2022-10-24 11:08] LABS: BLOOD UREA NITROGEN 19 MG/DL (9-23); CALCIUM LEVEL 10.6 MG/DL (8.3-10.6); CARBON DIOXIDE LEVEL 25 MMOL/L (20-31); CHLORIDE LEVEL 103 MMOL/L (98-107); CREATININE FOR GFR 0.62 MG/DL (0.55-1.30); GLOMERULAR FILTRATION RATE > 60.0 (>39); GLUCOSE, FASTING 283 MG/DL (74-106); POTASSIUM SERUM 4.3 MMOL/L (3.5-5.1); SODIUM LEVEL 134 MMOL/L (136-145)
[2022-10-24 12:20] LABS: LYMPHOCYTES 15 % (16-44); METAMYELOCYTES 8 % (0-0); MONOCYTES 15 % (0-5); MYELOCYTES 5 % (0-0); NEUTROPHILS 53 % (28-66)
[2022-10-24 12:21] LABS: PLATELET ESTIMATE NORMAL (NORMAL)
[2022-10-24 13:49] LABS: PROCALCITONIN 0.14 ng/ml
[2022-10-24 14:00] VITALS: BP 128/62; TEMP 97.3; O2SAT 97
[2022-10-24] MEDS: SENNA 8.6 MG TAB (SENOKOT) PO SCH (19:51)
[2022-10-24 20:07] VITALS: BP 136/63; TEMP 97.5; O2SAT 94
[2022-10-24 23:48] VITALS: BP 142/65
[2022-10-25 05:38] VITALS: BP 144/70; TEMP 97.2; O2SAT 95
[2022-10-25] MEDS: **hydrALAZINE HCL** 25 MG TAB PO SCH ×4 (05:48→23:54)
[2022-10-25] MEDS: INSULIN LISPRO (NovoLOG) PER UNIT SC SCH ×4 (06:55→20:43)
[2022-10-25] MEDS: LEVEMIR (INSULIN DETEMIR) 1 UNITS/0.01ML SC SCH ×2 (06:56→20:43)
[2022-10-25] MEDS: MAGNESIUM OXIDE 400MG TAB (MAG-OX) PO SCH (07:27)
[2022-10-25] MEDS: ATORVASTATIN 20 MG TAB PO SCH (07:27)
[2022-10-25] MEDS: PANTOPRAZOLE 40MG TAB (PROTONIX) PO SCH ×2 (07:27→20:43)
[2022-10-25] MEDS: ACETAMINOPHEN 500 MG TAB PO SCH ×3 (07:27→20:42)
[2022-10-25] MEDS: SUCRALFATE 1 GM TAB PO SCH ×2 (07:27→20:43)
[2022-10-25] MEDS: APIXABAN 5 MG TAB (ELIQUIS) PO SCH ×2 (07:28→20:43)
[2022-10-25] MEDS: REMEDY PHYTOPLEX Z-GUARD PASTE 113GM TUBE (FROM STOREROOM PRODUCT) TOP SCH ×3 (07:28→20:44)
[2022-10-25] MEDS: BACTRIM 160MG/800MG DS TAB PO SCH ×2 (07:28→20:43)
[2022-10-25] MEDS: VITAMIN D 1,000 INTERNATIONAL UNITS TABLET PO SCH (07:28)
[2022-10-25] MEDS: ASPIRIN 81MG ENTERIC TABLET PO SCH (07:28)
[2022-10-25] MEDS: DOCUSATE SODIUM 100MG CAPSULE PO SCH ×2 (07:28→20:44)
[2022-10-25] MEDS: ESCITALOPRAM OXALATE 5MG TABLET (LEXAPRO) PO SCH (07:28)
[2022-10-25] MEDS: METOPROLOL SUCC *XL* 25MG TAB (TopROL *XL*) PO SCH (07:28)
[2022-10-25 14:00] VITALS: BP 127/60; TEMP 97.6; O2SAT 97
[2022-10-25 20:00] VITALS: BP 139/65; TEMP 98; O2SAT 96
[2022-10-25] MEDS: SENNA 8.6 MG TAB (SENOKOT) PO SCH (20:44)
[2022-10-26] MEDS: **hydrALAZINE HCL** 25 MG TAB PO SCH ×3 (05:30→18:00)
[2022-10-26 06:00] VITALS: BP 139/66; TEMP 96.9; O2SAT 95
[2022-10-26] MEDS: INSULIN LISPRO (NovoLOG) PER UNIT SC SCH ×4 (08:20→20:25)
[2022-10-26] MEDS: DOCUSATE SODIUM 100MG CAPSULE PO SCH ×3 (09:00→20:25)
[2022-10-26] MEDS: ESCITALOPRAM OXALATE 5MG TABLET (LEXAPRO) PO SCH (10:12)
[2022-10-26] MEDS: ATORVASTATIN 20 MG TAB PO SCH (10:12)
[2022-10-26] MEDS: VITAMIN D 1,000 INTERNATIONAL UNITS TABLET PO SCH (10:12)
[2022-10-26] MEDS: BACTRIM 160MG/800MG DS TAB PO SCH ×2 (10:12→20:24)
[2022-10-26] MEDS: APIXABAN 5 MG TAB (ELIQUIS) PO SCH ×2 (10:12→20:24)
[2022-10-26] MEDS: SUCRALFATE 1 GM TAB PO SCH ×2 (10:12→20:24)
[2022-10-26] MEDS: ASPIRIN 81MG ENTERIC TABLET PO SCH (10:12)
[2022-10-26] MEDS: MAGNESIUM OXIDE 400MG TAB (MAG-OX) PO SCH (10:13)
[2022-10-26] MEDS: PANTOPRAZOLE 40MG TAB (PROTONIX) PO SCH ×2 (10:13→20:24)
[2022-10-26] MEDS: ACETAMINOPHEN 500 MG TAB PO SCH ×3 (10:13→20:24)
[2022-10-26] MEDS: LEVEMIR (INSULIN DETEMIR) 1 UNITS/0.01ML SC SCH ×2 (10:14→20:23)
[2022-10-26] MEDS: METOPROLOL SUCC *XL* 25MG TAB (TopROL *XL*) PO SCH (10:14)
[2022-10-26] MEDS: REMEDY PHYTOPLEX Z-GUARD PASTE 113GM TUBE (FROM STOREROOM PRODUCT) TOP SCH ×3 (10:15→20:25)
[2022-10-26 10:41] LABS: HEMOGLOBIN 10.8 g/dl (12.0-15.5); MEAN CORPUSCULAR HEMOGLOBIN 27.5 pg (27.0-33.0); MEAN CORPUSCULAR HGB CONC 30.9 g/dl (32.0-36.5); MEAN CORPUSCULAR VOLUME 89.1 fl (80.0-96.0); PLATELET COUNT, AUTOMATED 159 10^3/uL (150-450); RED BLOOD COUNT 3.93 10^6/uL (4.00-5.40); WHITE BLOOD COUNT 17.3 10^3/uL (4.0-10.0)
[2022-10-26 10:54] LABS: BLOOD UREA NITROGEN 15 MG/DL (9-23); CALCIUM LEVEL 10.6 MG/DL (8.3-10.6); CARBON DIOXIDE LEVEL 26 MMOL/L (20-31); CHLORIDE LEVEL 104 MMOL/L (98-107); CREATININE FOR GFR 0.61 MG/DL (0.55-1.30); GLOMERULAR FILTRATION RATE > 60.0 (>39); GLUCOSE, FASTING 272 MG/DL (74-106); POTASSIUM SERUM 4.3 MMOL/L (3.5-5.1); SODIUM LEVEL 137 MMOL/L (136-145)
[2022-10-26 11:43] LABS: ATYPICAL LYMPH 4 % (0-5); LYMPHOCYTES 20 % (16-44); METAMYELOCYTES 8 % (0-0); MONOCYTES 10 % (0-5); MYELOCYTES 7 % (0-0); NEUTROPHILS 50 % (28-66); PLATELET ESTIMATE NORMAL (NORMAL); POLYCHROMASIA 1+
[2022-10-26 11:44] LABS: ANISOCYTOSIS 1+
[2022-10-26 14:00] VITALS: BP 133/64; TEMP 97.2; O2SAT 98
[2022-10-26 20:00] VITALS: BP 136/60; TEMP 97.2; O2SAT 100
[2022-10-26] MEDS: SENNA 8.6 MG TAB (SENOKOT) PO SCH (20:24)
[2022-10-27] MEDS: **hydrALAZINE HCL** 25 MG TAB PO SCH ×4 (00:16→17:26)
[2022-10-27 06:00] VITALS: BP 145/65; TEMP 96.9; O2SAT 97
[2022-10-27] MEDS: INSULIN LISPRO (NovoLOG) PER UNIT SC SCH ×4 (07:30→21:00)
[2022-10-27] MEDS: LEVEMIR (INSULIN DETEMIR) 1 UNITS/0.01ML SC SCH ×2 (07:34→21:04)
[2022-10-27] MEDS: ASPIRIN 81MG ENTERIC TABLET PO SCH (08:46)
[2022-10-27] MEDS: APIXABAN 5 MG TAB (ELIQUIS) PO SCH ×2 (08:46→21:05)
[2022-10-27] MEDS: BACTRIM 160MG/800MG DS TAB PO SCH ×2 (08:46→21:05)
[2022-10-27] MEDS: PANTOPRAZOLE 40MG TAB (PROTONIX) PO SCH ×2 (08:46→21:05)
[2022-10-27] MEDS: SUCRALFATE 1 GM TAB PO SCH ×2 (08:46→21:05)
[2022-10-27] MEDS: METOPROLOL SUCC *XL* 25MG TAB (TopROL *XL*) PO SCH (08:46)
[2022-10-27] MEDS: ESCITALOPRAM OXALATE 5MG TABLET (LEXAPRO) PO SCH (08:47)
[2022-10-27] MEDS: MAGNESIUM OXIDE 400MG TAB (MAG-OX) PO SCH (08:47)
[2022-10-27] MEDS: ATORVASTATIN 20 MG TAB PO SCH (08:47)
[2022-10-27] MEDS: ACETAMINOPHEN 500 MG TAB PO SCH ×3 (08:47→21:05)
[2022-10-27] MEDS: VITAMIN D 1,000 INTERNATIONAL UNITS TABLET PO SCH (08:47)
[2022-10-27] MEDS: DOCUSATE SODIUM 100MG CAPSULE PO SCH ×2 (08:48→21:00)
[2022-10-27] MEDS: REMEDY PHYTOPLEX Z-GUARD PASTE 113GM TUBE (FROM STOREROOM PRODUCT) TOP SCH ×3 (08:48→21:00)
[2022-10-27 14:00] VITALS: BP 119/56; TEMP 96.8; O2SAT 97
[2022-10-27 20:00] VITALS: BP 150/67; TEMP 96.9; O2SAT 98
[2022-10-27] MEDS: SENNA 8.6 MG TAB (SENOKOT) PO SCH (21:05)
[2022-10-28 00:17] VITALS: BP 135/62; O2SAT 99
[2022-10-28 05:02] VITALS: BP 152/67
[2022-10-28] MEDS: **hydrALAZINE HCL** 25 MG TAB PO SCH ×4 (05:04→17:51)
[2022-10-28 06:00] VITALS: BP 152/67; TEMP 97; O2SAT 96
[2022-10-28] MEDS: INSULIN LISPRO (NovoLOG) PER UNIT SC SCH ×4 (07:30→20:09)
[2022-10-28] MEDS: LEVEMIR (INSULIN DETEMIR) 1 UNITS/0.01ML SC SCH ×2 (07:54→20:45)
[2022-10-28] MEDS: ASPIRIN 81MG ENTERIC TABLET PO SCH (08:36)
[2022-10-28] MEDS: ACETAMINOPHEN 500 MG TAB PO SCH ×3 (08:36→19:24)
[2022-10-28] MEDS: SUCRALFATE 1 GM TAB PO SCH ×2 (08:36→20:44)
[2022-10-28] MEDS: ATORVASTATIN 20 MG TAB PO SCH (08:37)
[2022-10-28] MEDS: PANTOPRAZOLE 40MG TAB (PROTONIX) PO SCH ×2 (08:37→20:44)
[2022-10-28] MEDS: MAGNESIUM OXIDE 400MG TAB (MAG-OX) PO SCH (08:37)
[2022-10-28] MEDS: APIXABAN 5 MG TAB (ELIQUIS) PO SCH ×2 (08:37→20:44)
[2022-10-28] MEDS: BACTRIM 160MG/800MG DS TAB PO SCH ×2 (08:37→20:44)
[2022-10-28] MEDS: ESCITALOPRAM OXALATE 5MG TABLET (LEXAPRO) PO SCH (08:37)
[2022-10-28] MEDS: VITAMIN D 1,000 INTERNATIONAL UNITS TABLET PO SCH (08:37)
[2022-10-28] MEDS: METOPROLOL SUCC *XL* 25MG TAB (TopROL *XL*) PO SCH (08:38)
[2022-10-28] MEDS: DOCUSATE SODIUM 100MG CAPSULE PO SCH ×2 (08:38→20:44)
[2022-10-28] MEDS: REMEDY PHYTOPLEX Z-GUARD PASTE 113GM TUBE (FROM STOREROOM PRODUCT) TOP SCH ×3 (08:38→19:24)
[2022-10-28 12:00] VITALS: BP 134/63; TEMP 97; O2SAT 96
[2022-10-28 14:00] VITALS: BP 134/63; TEMP 97; O2SAT 96
[2022-10-28 20:00] VITALS: BP 133/62; TEMP 97.1; O2SAT 99
[2022-10-28] MEDS: SENNA 8.6 MG TAB (SENOKOT) PO SCH (20:44)
[2022-10-29] MEDS: **hydrALAZINE HCL** 25 MG TAB PO SCH ×4 (05:25→17:54)
[2022-10-29 06:00] VITALS: BP 150/65; TEMP 97.3; O2SAT 98
[2022-10-29 06:12] LABS: HEMATOCRIT 32.9 % (36.0-47.0); HEMOGLOBIN 10.1 g/dl (12.0-15.5); MEAN CORPUSCULAR HEMOGLOBIN 27.4 pg (27.0-33.0); MEAN CORPUSCULAR HGB CONC 30.7 g/dl (32.0-36.5); MEAN CORPUSCULAR VOLUME 89.4 fl (80.0-96.0); PLATELET COUNT, AUTOMATED 122 10^3/uL (150-450); RED BLOOD COUNT 3.68 10^6/uL (4.00-5.40); WHITE BLOOD COUNT 11.2 10^3/uL (4.0-10.0)
[2022-10-29 06:38] LABS: BLOOD UREA NITROGEN 16 MG/DL (9-23); CALCIUM LEVEL 10.8 MG/DL (8.3-10.6); CARBON DIOXIDE LEVEL 27 MMOL/L (20-31); CHLORIDE LEVEL 106 MMOL/L (98-107); CREATININE FOR GFR 0.61 MG/DL (0.55-1.30); GLOMERULAR FILTRATION RATE > 60.0 (>39); GLUCOSE, FASTING 113 MG/DL (74-106); POTASSIUM SERUM 4.5 MMOL/L (3.5-5.1); SODIUM LEVEL 139 MMOL/L (136-145)
[2022-10-29] MEDS: APIXABAN 5 MG TAB (ELIQUIS) PO SCH ×2 (08:10→20:19)
[2022-10-29] MEDS: ATORVASTATIN 20 MG TAB PO SCH (08:10)
[2022-10-29] MEDS: MAGNESIUM OXIDE 400MG TAB (MAG-OX) PO SCH (08:11)
[2022-10-29] MEDS: ASPIRIN 81MG ENTERIC TABLET PO SCH (08:11)
[2022-10-29] MEDS: BACTRIM 160MG/800MG DS TAB PO SCH ×2 (08:11→20:19)
[2022-10-29] MEDS: SUCRALFATE 1 GM TAB PO SCH ×2 (08:11→20:18)
[2022-10-29] MEDS: PANTOPRAZOLE 40MG TAB (PROTONIX) PO SCH ×2 (08:11→20:19)
[2022-10-29] MEDS: ESCITALOPRAM OXALATE 5MG TABLET (LEXAPRO) PO SCH (08:11)
[2022-10-29] MEDS: VITAMIN D 1,000 INTERNATIONAL UNITS TABLET PO SCH (08:11)
[2022-10-29] MEDS: METOPROLOL SUCC *XL* 25MG TAB (TopROL *XL*) PO SCH (08:13)
[2022-10-29] MEDS: LEVEMIR (INSULIN DETEMIR) 1 UNITS/0.01ML SC SCH ×2 (08:13→20:19)
[2022-10-29] MEDS: INSULIN LISPRO (NovoLOG) PER UNIT SC SCH ×4 (08:14→20:05)
[2022-10-29] MEDS: ACETAMINOPHEN 500 MG TAB PO SCH ×3 (08:14→20:19)
[2022-10-29] MEDS: DOCUSATE SODIUM 100MG CAPSULE PO SCH ×2 (08:14→20:19)
[2022-10-29 08:15] LABS: ATYPICAL LYMPH 6 % (0-5); LYMPHOCYTES 9 % (16-44); METAMYELOCYTES 2 % (0-0); MONOCYTES 16 % (0-5); MYELOCYTES 2 % (0-0); NEUTROPHILS 60 % (28-66)
[2022-10-29] MEDS: REMEDY PHYTOPLEX Z-GUARD PASTE 113GM TUBE (FROM STOREROOM PRODUCT) TOP SCH ×3 (08:15→20:20)
[2022-10-29 08:16] LABS: HYPOCHROMASIA 1+
[2022-10-29 08:17] LABS: PLATELET ESTIMATE NORMAL (NORMAL)
[2022-10-29 14:00] VITALS: BP 112/56; TEMP 97; O2SAT 95
[2022-10-29 20:00] VITALS: BP 134/60; TEMP 97.3; O2SAT 97
[2022-10-29] MEDS: SENNA 8.6 MG TAB (SENOKOT) PO SCH (20:19)
[2022-10-30] MEDS: **hydrALAZINE HCL** 25 MG TAB PO SCH ×3 (00:14→11:49)
[2022-10-30 06:00] VITALS: BP 128/58; TEMP 97.7; O2SAT 100
[2022-10-30] MEDS: INSULIN LISPRO (NovoLOG) PER UNIT SC SCH ×2 (07:18→11:51)
[2022-10-30] MEDS: LEVEMIR (INSULIN DETEMIR) 1 UNITS/0.01ML SC SCH (07:18)
[2022-10-30] MEDS: REMEDY PHYTOPLEX Z-GUARD PASTE 113GM TUBE (FROM STOREROOM PRODUCT) TOP SCH (07:22)
[2022-10-30] MEDS ORDERED: HYDR25TA PO (07:24)
[2022-10-30] MEDS ORDERED: SUCR1TA PO (07:24)
[2022-10-30] MEDS ORDERED: METO1TAB32 PO (07:24)
[2022-10-30] MEDS ORDERED: LEXA5TAB13 PO (07:24)
[2022-10-30] MEDS ORDERED: AMLO1TAB25 PO (07:24)
[2022-10-30] MEDS ORDERED: INSUDET SC (07:24)
[2022-10-30] MEDS ORDERED: ATOR40TA75 PO (07:24)
[2022-10-30] MEDS ORDERED: ELIQ5TAB PO (07:24)
[2022-10-30] MEDS ORDERED: ECOT81TA5 PO (07:24)
[2022-10-30] MEDS ORDERED: PANT40TA29 PO (07:24)
[2022-10-30] MEDS: APIXABAN 5 MG TAB (ELIQUIS) PO SCH (08:34)
[2022-10-30] MEDS: ATORVASTATIN 20 MG TAB PO SCH (08:34)
[2022-10-30] MEDS: DOCUSATE SODIUM 100MG CAPSULE PO SCH (08:34)
[2022-10-30] MEDS: MAGNESIUM OXIDE 400MG TAB (MAG-OX) PO SCH (08:34)
[2022-10-30] MEDS: SUCRALFATE 1 GM TAB PO SCH (08:34)
[2022-10-30] MEDS: PANTOPRAZOLE 40MG TAB (PROTONIX) PO SCH (08:34)
[2022-10-30] MEDS: VITAMIN D 1,000 INTERNATIONAL UNITS TABLET PO SCH (08:34)
[2022-10-30] MEDS: ASPIRIN 81MG ENTERIC TABLET PO SCH (08:35)
[2022-10-30] MEDS: ESCITALOPRAM OXALATE 5MG TABLET (LEXAPRO) PO SCH (08:35)
[2022-10-30] MEDS: BACTRIM 160MG/800MG DS TAB PO SCH (08:35)
[2022-10-30] MEDS: ACETAMINOPHEN 500 MG TAB PO SCH (08:35)
[2022-10-30] MEDS: METOPROLOL SUCC *XL* 25MG TAB (TopROL *XL*) PO SCH (08:39)
[2022-10-30 11:49] VITALS: BP 122/57
== END 2022-10-30 12:55 | disposition home health service (06) | DRG 560 ==
LOC: M PM&R 14:30
PROVIDERS: ADMIT Physical Medicine & Rehabilitation; ATTEND Physical Medicine & Rehabilitation
DX: S72.011D Unspecified intracapsular fracture of right femur, subsequent encounter for closed fracture with routine healing (principal); N39.0 Urinary tract infection, site not specified; S42.201D Unspecified fracture of upper end of right humerus, subsequent encounter for fracture with routine healing; F03.90 Unspecified dementia, unspecified severity, without behavioral disturbance, psychotic disturbance, mood disturbance, and anxiety; I48.91 Unspecified atrial fibrillation; Z86.73 Personal history of transient ischemic attack (TIA), and cerebral infarction without residual deficits; E11.9 Type 2 diabetes mellitus without complications; E78.5 Hyperlipidemia, unspecified; F41.9 Anxiety disorder, unspecified; F32.A Depression, unspecified; K21.9 Gastro-esophageal reflux disease without esophagitis; Z74.09 Other reduced mobility; Z74.1 Need for assistance with personal care; I10 Essential (primary) hypertension; D69.6 Thrombocytopenia, unspecified; Z79.01 Long term (current) use of anticoagulants; Z79.82 Long term (current) use of aspirin; Z79.4 Long term (current) use of insulin; Z79.84 Long term (current) use of oral hypoglycemic drugs; Z79.899 Other long term (current) drug therapy; Z88.7 Allergy status to serum and vaccine

== ENCOUNTER → 2022-11-12 | Outpatient (CLI) | payer MEDICARE, BC ==
[~2022-11-12] MED LIST changes: +HYDR25TA PO; +LEXA5TAB13 PO; +PANT40TA29 PO; +SUCR1TA PO
== END ==
LOC: M SOG 07:52
PROVIDERS: ATTEND Orthopaedic Surgery
DX: S42.231D 3-part fracture of surgical neck of right humerus, subsequent encounter for fracture with routine healing (principal); Z47.89 Encounter for other orthopedic aftercare; S72.011D Unspecified intracapsular fracture of right femur, subsequent encounter for closed fracture with routine healing

== ENCOUNTER → 2022-12-24 | Outpatient (CLI) | payer MEDICARE, BC | LOC: M SOG 08:03 | PROVIDERS: ATTEND Orthopaedic Surgery | DX: S42.201D Unspecified fracture of upper end of right humerus, subsequent encounter for fracture with routine healing (principal); S72.044D Nondisplaced fracture of base of neck of right femur, subsequent encounter for closed fracture with routine healing; M19.011 Primary osteoarthritis, right shoulder ==

== ENCOUNTER → 2023-03-27 | Outpatient (CLI) | payer MEDICARE, BC | LOC: M SOG 07:52 | PROVIDERS: ATTEND Orthopaedic Surgery | DX: S42.201D Unspecified fracture of upper end of right humerus, subsequent encounter for fracture with routine healing (principal); S72.044D Nondisplaced fracture of base of neck of right femur, subsequent encounter for closed fracture with routine healing; Y93.9 Activity, unspecified; Y92.9 Unspecified place or not applicable ==

== ENCOUNTER → 2023-07-26 | Outpatient (CLI) | payer MEDICARE ==
[~2023-07-26] MED LIST changes: -HYDR25TA PO; +HYDR25TA88 PO
== END ==
LOC: M SOG 10:51
PROVIDERS: ATTEND Orthopaedic Surgery
DX: S42.201D Unspecified fracture of upper end of right humerus, subsequent encounter for fracture with routine healing (principal); S72.044D Nondisplaced fracture of base of neck of right femur, subsequent encounter for closed fracture with routine healing; Y93.9 Activity, unspecified; Y92.9 Unspecified place or not applicable